=== PATIENT | male | born 1940 | race Two or more races ===

== ENCOUNTER 2017-12-20 21:37 | Emergency (ER) | payer OTHER, MEDICAID ==
[~2017-12-20] VITALS: Ht 172.7 cm; Wt 141.1 kg
[~2017-12-20 21:37] MED LIST: ASPI81TA35
[2017-12-20 22:50] LABS: Basophils # (auto) 0 uL; Basophils % (auto) 0.5 % (0.0-2.0); Eosinophils # (auto) 0 uL; Hematocrit 37.7 % (41.0-53.0); Hemoglobin 12.4 g/dL (13.5-17.5); Lymphocytes # (auto) 0.3 uL; Lymphocytes % (auto) 3.5 % (10.0-50.0); Mean Corpuscular Hemoglobin 31.9 pg (28.0-32.0); Mean Corpuscular Hgb Conc. 32.8 g/dL (32.0-36.0); Mean Corpuscular Volume 97.5 fL (80.0-100.0); Monocytes # (auto) 0.6 uL; Monocytes % (auto) 6.5 % (0.0-12.0); Neutrophils # (auto) 8.2 uL; Neutrophils % (auto) 89.5 % (37.0-80.0); Nucleated Red Blood Cells % 0.1 %; Platelet Count (auto) 118 10^3/uL (140-450); Red Blood Cells 3.87 10^6/uL (4.5-5.90); Red Cell Distribution Width 15.5 % (11.8-14.3); White Blood Cell 9.2 10^3/uL (4.4-10.8)
[2017-12-20 23:02] LABS: INR 1.11 (0.9-1.15); Partial Thromboplastin Time 28.8 sec (23.78-33.04); Prothrombin Time 11.8 sec (9.27-12.13)
[2017-12-20 23:05] LABS: Albumin 3.5 g/dL (3.4-5.0); BUN/Creatinine Ratio 24.7; Calcium 8.3 mg/dL (8.5-10.1); Potassium 4.2 mmol/L (3.5-5.1)
[2017-12-20 23:10] LABS: Total Protein 7.3 g/dL (6.4-8.2)
[2017-12-20 23:44] LABS: Urine Bacteria NONE SEEN /hpf (None Seen); Urine Blood Negative /uL (Negative); Urine Specific Gravity 1.014 (1.001-1.035); Urine WBC <1 /hpf (0 - 3)
[2017-12-21] MEDS ORDERED: ASPirin 325 MG TAB PO ONE (03:30)
[2017-12-21] MEDS ORDERED: NITROGLYCERIN 0.2MG/HR TOPICAL PATCH TD ONE (03:30)
[2017-12-21] MEDS ORDERED: ALL100T PO (10:36)
[2017-12-21] MEDS ORDERED: BEN10T GT (10:41)
[2017-12-21] MEDS ORDERED: FURO40TA4 PO (10:42)
[2017-12-21] MEDS ORDERED: POTA8TAB2 PO (10:44)
[2017-12-21] MEDS ORDERED: METO-169 PO (10:46)
[2017-12-21] MEDS ORDERED: GLIM4TAB42 PO (10:46)
[2017-12-21] MEDS ORDERED: TAMS0.4C36 PO (10:46)
[2017-12-21 10:57] VITALS: BP 110/50
== END 2017-12-21 11:00 | disposition home or self-care (01) ==
LOC: ER 21:37
DX: R07.9 Chest pain, unspecified (principal); E11.22 Type 2 diabetes mellitus with diabetic chronic kidney disease; I12.9 Hypertensive chronic kidney disease with stage 1 through stage 4 chronic kidney disease, or unspecified chronic kidney disease; N18.3 Chronic kidney disease, stage 3 (moderate); Z79.4 Long term (current) use of insulin
CPT/HCPCS: 36415; 70450; 71045; 80053; 81001; 82962; 83880; 84484; 84550; 85025; 85610; 85730; 93005